=== PATIENT | male | born 1995 | race Caucasian/White ===

== ENCOUNTER 2022-11-15 18:34 | Emergency (ER) | payer BC ==
[2022-11-15] MEDS ORDERED: HYDROMORPHONE HCL 1 MG/ML INJ ONE ×2 (18:52→18:58)
[2022-11-15] MEDS ORDERED: KETOROLAC 30 MG/ML INJ ONE (18:53)
[2022-11-15] MEDS ORDERED: ONDANSETRON 4 MG/2 ML VIAL ONE (18:53)
[2022-11-15] MEDS ORDERED: NA CHLORIDE 0.9% 1,000 ML ONE (18:53)
--- OUTSIDE RECORDS SUMMARY | 2022-11-15 18:55 | XMS REPORT | Continuity of Care Document ---
:1995 Author Organization [facility] Address [address] [place] [address] Care Team Providers Name Role Phone Doctor Unassigned, [place] Attending Clinician Unavailable Only, Keshawn Test Attending Clinician Unavailable Dakota Walsh MD Attending Clinician DAKOTA WALSH Attending Clinician Unavailable Payers Payer Name Policy Type Policy Number Effective Date Expiration Date S ource Problems Condition Condition Condition Status Onset Resolution Last Treating Co mments Source Name Details Category Date Date Treatment Clinician Date No known No known Disease Unive rs active active ity of problems problems [facility] Allergies, Adverse Reactions, Alerts Allergy Allergy Status Severity Reaction(s) Onset Inactive Treating Comm ents Source Name Type Date Date Clinician NO KNOWN Drug Active Univers ALLERGIE Class ity of S [facility] Social History Social Habit Start Date Stop Date Quantity Comments Source Sex Assigned At [facility] Branch Exposure to Not sure [facility] SARS-CoV-2 (event) Medica l Branch Alcohol intake 2019-10-01 2019-10-01 [facility] 00:00:00 00:00:00 [facility] Smoking Status Start Date Stop Date Source Never smoker [facility] Medications Ordered Filled Start Stop Current Ordering Indication Dosage Frequency Signature Comments Components Source Medication Medication Date Date Medication? Clinician (SIG) Name Name polymyxin B 2020-0 Yes [id number] 1[drp] Place 1 Univers sulf-trimet 10-01 [id number] Drop in ity of hoprim 00:00: left eye [place] 10,000 00 every 4 Medical unit- 1 (four) Branch mg/mL hours. ophthalmic drops polymyxin B 2019-0 Yes [id number] 1[drp] Place 1 Univers sulf-trimet [id number] Drop in ity of hoprim 00:00: left eye [place] 10,000 00 every 4 Medical unit- 1 (four) Branch mg/mL hours. ophthalmic drops methocarbam 2015-09 Yes [id number] 500mg Take 1 Univers ol 1-07 tablet by ity of (ROBAXIN) 00:00: mouth 2 [place] 500 mg 00 (two) Medical tablet times Branch daily as needed (muscle spasm). methocarbam 2015-09 Yes [id number] 500mg Take 1 Univers ol 1-07 tablet by ity of (ROBAXIN) 00:00: mouth 2 [place] 500 mg 00 (two) Medical tablet times Branch daily as needed (muscle spasm). Immunizations Ordered Filled Immunization Date Status Comments Sour e Immunization Name Name Influenza Virus 2019-10-01 Completed Universit y of Vaccine [place] .5 mL 00:00:00 [place] [facility] IM 6+ MO Branch Influenza Virus 2019-10-01 Completed Universit y of Vaccine [place] .5 mL 00:00:00 [place] [facility] IM 6+ [facility] Branch Procedures This patient has no known procedures. Encounters Start End Encounter Admission Attending Care Care Encounter Source Date/Time Date/Time Type Type Clinicians Facility Department ID 2020-03-19 2020-03-19 Patient Doctor [facility] [id number] Univers 00:00:00 00:00:00 Secure Msg Unassigned, HEALTH [id number] ity of [place] [id number] [facility] [id number] [facility] Specialty Care 2020-03-18 2020-03-18 Laboratory Only, Keshawn Richmond [facility] [id number] Univers 15:51:48 16:06:48 Only Dakota Walsh [facility] [id number] ity of [place] [id number] [facility] [id number] [facility] Branch Specialty Care 2020-03-18 2020-03-18 Outpatient R [facility] [id number] Univers 15:30:00 15:30:00 DAKOTA acuna of [facility] Results This patient has no known results.
[2022-11-15 19:15] LABS: Absolute Lymphocytes (CBC) 2.6 K/uL (0.7-4.9); Hematocrit 43.6 % (39.6-49.0); MCV 91.9 fL (80-100); MPV 7.6 fL (7.6-11.3); RBC Red Blood Cell Count 4.75 M/uL (4.33-5.43)
[2022-11-15 19:30] LABS: Albumin 4.5 g/dL (3.4-5.0); Bilirubin Total 0.6 mg/dL (0.2-1.0); Potassium 3.2 mmol/L (3.5-5.1); Protein, Total 7.4 g/dL (6.4-8.2)
[2022-11-15] MEDS ORDERED: LORazepam 2 MG/ML VIAL ONE (20:01)
--- NOTE | 2022-11-15 20:07 | RAD REPORT ---
EXAM DESCRIPTION: RAD - Tib Fib Right - 11/15/2022 7:43 pm CLINICAL HISTORY: Pain COMPARISON: Foot Left 2 View dated 11/15/2022 FINDINGS: Obliquely oriented fracture midshaft fibula. Mild displacement. Additional fracture involving the posterior malleolus of the ankle. Medial malleolar fracture also li ha present.
--- NOTE | 2022-11-15 20:10 | RAD REPORT ---
EXAM DESCRIPTION: RAD - Foot Left 2 View - 11/15/2022 7:43 pm CLINICAL HISTORY: PAIN COMPARISON: No comparisons FINDINGS: Bone detail is obscured by splint material. Ankle fracture separately reported. No gross f oot fracture seen.
[2022-11-15] MEDS ORDERED: TDAP (DIPHTH,PERTUSS(ACELL),TET VAC) 0.5 ML VIAL IMVAC ONE (20:43)
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
--- NOTE | 2022-11-15 20:51 | EDPHYS ---
Physician Documentation [facility] Name: Manfred Salinas Age: 27 yrs Sex: Male : 1995 Arrival Date: 11/15/2022 Time: 18:40 Bed 2 Private MD: ED Physician Demetrio Navarro HPI: 11/15 19:19 This 27 yrs old Male presents to ER via EMS with complaints of Ankle Injury. juventino 19:19 The patient presents with decreased range of motion, pain, swelling, tenderness. The juventino complaints affect the left ankle, left lateral ankle, left medial ankle and anterior aspect of left ankle. Onset: The symptoms/episode began/occurred just prior to arrival. Historical: - Allergies: 18:42 No Known Allergies; ld1 - Home Meds: 18:42 None [Active]; ld1 - PMHx: 18:42 None; ld1 - PSHx: 18:42 None; ld1 - Immunization history:: Adult Immunizations up to date, Client reports having NOT received the Covid vaccine. - Social history:: Smoking status: Patient denies any tobacco usage or history of. Patient uses alcohol, occasionally. ROS: 19:20 Constitutional: Negative for fever, chills, and weight loss, Eyes: Negative for injury, juventino pain, redness, and discharge, ENT: Negative for injury, pain, and discharge, Neck: Negative for injury, pain, and swelling, Cardiovascular: Negative for chest pain, palpitations, and edema, Respiratory: Negative for shortness of breath, cough, wheezing, and pleuritic chest pain, Abdomen/GI: Negative for abdominal pain, nausea, vomiting, diarrhea, and constipation, Back: Negative for injury and pain, : Negative for injury, bleeding, discharge, and swelling, Skin: Negative for injury, rash, and discoloration, Neuro: Negative for headache, weakness, numbness, tingling, and seizure, Psych: Negative for depression, anxiety, suicide ideation, homicidal ideation, and hallucinations, Allergy/Immunology: Negative for hives, rash, and allergies, Endocrine: Negative for neck swelling, polydipsia, polyuria, polyphagia, and marked weight changes, Hematologic/Lymphatic: Negative for swollen nodes, abnormal bleeding, and unusual bruising. 19:20 MS/extremity: Positive for injury or acute deformity, decreased range of motion, pain, swelling, tenderness, of the right ankle and anterior aspect of right ankle. Exam: 19:20 Constitutional: This is a well developed, well nourished patient who is awake, alert, juventino and in no acute distress. Head/Face: Normocephalic, atraumatic. Eyes: Pupils equal round and reactive to light, extra-ocular motions intact. Lids and lashes normal. Conjunctiva and sclera are non-icteric and not injected. Cornea within normal limits. Periorbital areas with no swelling, redness, or edema. ENT: Nares patent. No nasal discharge, no septal abnormalities noted. Tympanic membranes are normal and external auditory canals are clear. Oropharynx with no redness, swelling, or masses, exudates, or evidence of obstruction, uvula midline. Mucous membranes moist. Neck: Trachea midline, no thyromegaly or masses palpated, and no cervical lymphadenopathy. Supple, full range of motion without nuchal rigidity, or vertebral point tenderness. No Meningismus. Chest/axilla: Normal chest wall appearance and motion. Nontender with no deformity. No lesions are appreciated. Cardiovascular: Regular rate and rhythm with a normal S1 and S2. No gallops, murmurs, or rubs. Normal PMI, no JVD. No pulse deficits. Respiratory: Lungs have equal breath sounds bilaterally, clear to auscultation and percussion. No rales, rhonchi or wheezes noted. No increased work of breathing, no retractions or nasal flaring. Abdomen/GI: Soft, non-tender, with normal bowel sounds. No distension or tympany. No guarding or rebound. No evidence of tenderness throughout. Back: No spinal tenderness. No costovertebral tenderness. Full range of motion. Male : Normal genitalia with no discharge or lesions. Skin: Warm, dry with normal turgor. Normal color with no rashes, no lesions, and no evidence of cellulitis. Neuro: Awake and alert, GCS 15, oriented to person, place, time, and situation. Cranial nerves II-XII grossly intact. Motor strength 5/5 in all extremities. Sensory grossly intact. Cerebellar exam normal. Normal gait. Psych: Awake, alert, with orientation to person, place and time. Behavior, mood, and affect are within normal limits. 19:20 Musculoskeletal/extremity: ROM: limited active range of motion due to pain, in the lateral aspect of right calf, right ankle, right brock and anterior aspect of right ankle, limited passive range of motion due to pain. 19:20 Skin: injury, abrasion(s), avulsion(s), a very small of the heel of left foot, contusion(s), that are superficial, of the right ankle. Vital Signs: 18:41 BP 157 / 99; Pulse 103; Resp 17; Temp 97.6(O); Pulse Ox 99% on R/A; Weight 83.91 kg; ld1 Height 5 ft. 9 in. (175.26 cm); Pain 10/10; 19:09 BP 152 / 94; Pulse 109; Resp 22; Pulse Ox 100% on R/A; Pain 6/10; ld1 20:00 BP 164 / 102; Pulse 122; Resp 16; Pulse Ox 100% on R/A; jb4 21:00 Pulse 112; Resp 17; Pulse Ox 99% on R/A; jb4 18:41 Body Mass Index 27.32 (83.91 kg, 175.26 cm) ld1 MDM: 18:45 Patient medically screened. [facility] 19:23 Differential diagnosis: Blunt trauma Laceration Closed head injury closed fracture, juventino contusion, abrasion, fracture. Data reviewed: vital signs, nurses notes. Consideration of Admission/Observation Patient was admitted/placed on observation. Escalation of care including admission/observation considered. I considered the following discharge prescriptions or medication management in the emergency department Medications were administered in the Emergency Department. See MAR. Test considered but Not performed: Ultrasound NO FAST. Counseling: I had a detailed discussion with the patient and/or guardian regarding: the historical points, exam findings, and any diagnostic results supporting the discharge/admit diagnosis, lab results, radiology results, the need for outpatient follow up, for definitive care, a orthopedic surgeon. 20:56 Management of patient was discussed with the following: Hotel Assistant General Manager: Orthopedist rt on-call, will follow-up.. 11/15 18:46 Order name: CBC with Diff [facility] 11/15 18:46 Order name: Comprehensive Metabolic Panel [facility] 11/15 18:45 Order name: XRAY Ankle RIGHT 3 view jl7 11/15 18:49 Order name: CT Traumagram (Head C Spine CAP W Con) [facility] 11/15 19:17 Order name: CBC with Automated Diff; Complete Time: 19:21 EDMS 11/15 19:30 Order name: Comprehensive Metabolic Panel; Complete Time: 19:35 EDMS 11/15 19:19 Order name: Tib Fib Right XRAY [facility] 11/15 19:19 Order name: Foot Left 3 View XRAY [facility] 11/15 20:08 Order name: RAD; Complete Time: 20:26 EDMS 11/15 20:11 Order name: RAD; Complete Time: 20:26 EDNH 11/15 20:44 Order name: CT; Complete Time: 20:44 EDNH 11/15 18:49 Order name: Ice pack; Complete Time: 20:53 [facility] 11/15 19:19 Order name: Wound Care; Complete Time: 20:52 [facility] 11/15 21:01 Order name: Crutches; Complete Time: 21:12 rt Administered Medications: 18:50 Drug: Ketorolac 30 mg Route: IVP; Site: left antecubital; ld1 18:50 Drug: Dilaudid (HYDROmorphone) 1 mg Route: IVP; Site: left antecubital; ld1 18:50 Drug: Zofran (Ondansetron) 4 mg Route: PO; ld1 18:55 Drug: Dilaudid (HYDROmorphone) 1 mg Route: IVP; Site: left antecubital; ld1 19:07 Drug: NS 0.9% 1000 ml Route: IV; Rate: 1 bolus; Site: left antecubital; ld1 20:11 Drug: Ativan (LORazepam) 1 mg Route: IVP; Site: left antecubital; jb4 20:46 Drug: Tetanus Toxoid,Adsorbed 0.5 ml {[employer]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 Exp: jb4 04/09/2023. Lot #: [id number]. } Route: IM; Site: left deltoid; Disposition Summary: 11/15/22 20:51 Discharge Ordered Location: Home rt Problem: new rt Symptoms: have improved rt Condition: Stable rt Diagnosis - Dislocation of right ankle rt - Right tibia midshaft fracture rt - Bimalleolar fracture rt Followup: rt - With: Kevin Eid MD - When: 2 - 3 days - Reason: Discharge Instructions: - Discharge Summary Sheet rt - Ankle Fracture rt - Closed Reduction for Ankle Fracture or Dislocation rt Forms: - Medication Reconciliation Form rt - Thank You Letter rt - Antibiotic Education rt - Prescription Opioid Use rt Prescriptions: - Tylenol-Codeine #3 300 mg-30 mg Oral - take 1 tablet by ORAL route every 6 hours; 18 tablet; Refills: 0, Product rt Selection Permitted Signatures: Dispatcher [employer] Dewayne Wan MD MD cha Bryson, James, RN RN jb4 Agnes Boateng RN RN ld1 Demetrio Navarro MD MD rt
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
== END 2022-11-15 21:16 | disposition home or self-care (01) ==
LOC: ER 18:34
PROC: 0QSG34Z Reposition Right Tibia with Internal Fixation Device, Percutaneous Approach (ICD-10-PCS; principal; 2022-11-15)
DX: S82.201A Unspecified fracture of shaft of right tibia, initial encounter for closed fracture (principal); S82.841A Displaced bimalleolar fracture of right lower leg, initial encounter for closed fracture; S93.04XA Dislocation of right ankle joint, initial encounter; Z23 Encounter for immunization
CPT/HCPCS: 85025; 36415; 80053; 70450; 72125; 71260; 74177; 73620; 73590; 90471; 96375; 96374; 99284; 27810; Q9967; J1170 ×2; J7030; J2405